=== PATIENT | male | born 1985 | race Caucasian/White ===

== ENCOUNTER 2019-06-08 00:24 | Emergency (ER) | payer OTHER ==
--- NOTE | 2019-06-08 00:42 | PDOC ---
History of Present Illness - General Stated Complaint: BACK PAIN & ARM PAIN Time Seen by Provider: 06/08/19 00:39 - History of Present Illness Initial Comments: 06/08/19 00:47 The patient is a 33 year old male with no significant PMH who presents for evaluation of lower back pain and left elbow pain. 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 He denies any head trauma or other injuries and otherwise denies chest pain, SOB, nausea, vomiting, abdominal pain, numbness, tingling, or weakness. Past History - Past Medical History Allergies/Adverse Reactions: Allergies Allergy/AdvReac Type Severity Reaction Status Date / Time No Known Allergies Allergy Verified 06/08/19 00:49 Home Medications: Ambulatory Orders NK [No Known Home Medication] 06/08/19 - Psycho Social/Smoking Cessation Hx Smoking History: Current every day smoker Number of Cigarettes Smoked Daily: 5 Hx Alcohol Use: No Drug/Substance Use Hx: No Review of Systems - Review of Systems Comments:: 06/08/19 00:49 Constitutional: No fevers, chills, fatigue, malaise HEENT: No Rhinorrhea, nasal congestion, visual changes Cardiovascular: No chest pain, syncope, palpitations, lightheadedness Respiratory: No Cough, SOB, Hemoptysis, Gastrointestinal: No Abdominal pain, Nausea, Vomiting, Constipation, Diarrhea, Melena Genitourinary: No Dysuria, Frequency, Urgency, Hesitancy, Hematuria, Flank pain Musculoskeletal: Lower back pain. Left elbow pain. No Myalgia, arthralgia Skin: No rashes, itching, bruising, pallor Neurologic: No Headache, Dizziness, Numbness, Weakness, or Tingling Psychiatric: No Hallucinations. No SI or HI *Physical Exam - Physical Exam 06/08/19 00:49 General Appearance: Nourished. No Apparent Distress HEENT: No Pharyngeal Erythema, Tonsillar Exudate, Tonsillar Erythema Neck: No Cervical Lymphadenopathy Respiratory/Chest: Lungs Clear, Normal Breath Sounds. No Crackles, Rales, Rhonchi, Wheezing Cardiovascular: Regular Rhythm, Regular Rate. No Murmur, Gallops, Rubs Gastrointestinal/Abdominal: Normal Bowel Sounds, Soft. No Guarding, Rebound, Tenderness Musculoskeletal: Bilateral paraspinal discomfort with palpation in the lumbar region on exam. Normal patella reflexes distally. Normal ROM of the left elbow. No CVA Tenderness Extremity: Normal Capillary Refill Integumentary: Normal Color, Dry, Warm Neurologic: Fully Oriented, Alert, Normal Mood/Affect, Normal Response, Motor Strength 5/5. Medical Decision Making - Medical Decision Making 06/08/19 00:50 The patient is a 33 year old male with no significant PMH who presents for evaluation of lower back pain and left elbow pain. Given the patient's history and physical exam, we will obtain plain films to evaluate further. We will treat with ibuprofen and continue to monitor and reassess while here in the ED. 06/08/19 01:39 Plain films did not demonstrate any acute process as preliminarily read by ED physician pending official radiology review. We are comfortable discharging the patient home in stable condition. Patient and family made aware of impression and plan, return precautions discussed including but not limited to worsening pain or symptoms, fevers, or signs of infection, chest pain, respiratory distress, inability to tolerate oral intake, dehydration, syncope, or neurologic changes. The patient is to follow up with PMD as recommended within 1 week, follow up information provided and the patient will call for an appointment. The patient is to take medications as instructed for duration of time and continue with supportive care, avoid triggers and precipitants. Patient is safe for outpatient follow-up. Discharge - Discharge Information Problems reviewed: Yes Clinical Impression/Diagnosis: Back pain Qualifiers: Back pain location: low back pain Chronicity: acute Back pain laterality: unspecified Sciatica presence: unspecified whether sciatica present Qualified Code(s): M54.5 - Low back pain Condition: Stable Disposition: HOME - Follow up/Referral - Patient Discharge Instructions Patient Printed Discharge Instructions: DI for Low Back Pain Additional Instructions: 1) Please follow-up with your primary care doctor in the next 2-3 days. Please call tomorrow to schedule a follow up appointment. If you cannot follow up with your doctor within 1 week please return to the Emergency Department for any urgent issues. 2) Your imaging results were normal here in the ER. 3) If you have any worsening of symptoms or any other concerns, please return to the ER immediately. Return if worsening symptoms including fevers, headache, vomiting, visual or hearing disturbances, abdominal pain, chest pain, shortness of breath, syncope, dehydration, inability to take things by mouth/vomiting, altered mental status, or worsening concerning symptoms. 4) You may take tylenol and motrin at home as needed to help manage your pain. - Post Discharge Activity
[2019-06-08] MEDS ORDERED: IBUPROFEN 600 MG TABLET (FP) PO ONE ×2 (00:45→00:53)
[2019-06-08 00:53] VITALS: BP 117/70; PULSE 85; TEMP 98; BMI 32.3
--- NOTE | 2019-06-08 00:54 | PDOC ---
Attending Attestation - Resident Resident Name: Antony Jones - ED Attending Attestation I have performed the following: I have examined & evaluated the patient, The case was reviewed & discussed with the resident, I agree w/resident's findings & plan, Exceptions are as noted - HPI HPI: 06/08/19 00:51 33M with no PMH presenting to ED with lower back and L elbow pain. Pt is [employer] and states that he fell earlier this evening. Denies headstrike/LOC. Pt denies lower extremity weakness/numbness. Denies incontinence. Denies saddle anesthesia. - Physicial Exam PE: 06/08/19 00:53 "GENERAL: Awake, alert, and fully oriented, in no acute distress. HEAD: No signs of trauma EYES: PERRLA, EOMI, sclera anicteric, conjunctiva clear ENT: Auricles normal inspection, hearing grossly normal, nares patent, oropharynx clear without exudates. Moist mucosa NECK: Nontender, no stepoffs, Normal ROM, supple, no lymphadenopathy, JVD, or masses LUNGS: Breath sounds equal, clear to auscultation bilaterally. No wheezes, and no crackles HEART: Regular rate and rhythm, normal S1 and S2, no murmurs, rubs or gallops ABDOMEN: Soft, nontender, normoactive bowel sounds. No guarding, no rebound. No masses EXTREMITIES: + L elbow with mild TTP, no deformity, Normal range of motion, no edema. No clubbing or cyanosis. No cords, erythema BACK: + lumbar paraspinal TTP, no stepoffs, no midline TTP NEUROLOGICAL: Cranial nerves II through XII intact. 5/5 strength and sensation in all extremities, Normal speech, normal gait, normal cerebellar function SKIN: Warm, Dry, normal turgor, no rashes or lesions noted. - Medical Decision Making 06/08/19 00:54 33 M with lower back and L elbow pain after fall. - XR lumbar spine, L elbow - Tylenol 06/08/19 01:43 XRs negative on my read Pt is well appearing, with normal vitals. Clinically stable for DC at this time. I discussed the physical exam findings, ancillary test results and final diagnoses with the patient. I answered all of the patient's questions. The patient was satisfied with the care received and felt comfortable with the discharge plan and treatment plan. The patient agrees to follow up with the primary care physician within 24-72 hours.
== END 2019-06-08 01:49 | disposition home or self-care (01) ==
LOC: JER 00:24
DX: M54.5 Low back pain (principal); F17.210 Nicotine dependence, cigarettes, uncomplicated; W18.39XA Other fall on same level, initial encounter; Y93.89 Activity, other specified; Y92.89 Other specified places as the place of occurrence of the external cause; Y99.0 Civilian activity done for income or pay
CPT/HCPCS: 72100-TC-FY; 73070-TC-LT-FY; 99283-25

== ENCOUNTER 2020-08-26 09:11 | Emergency (ER) | payer OTHER ==
[2020-08-26 09:24] VITALS: BP 132/82; PULSE 58; TEMP 97.8; BMI 32.1
[2020-08-26] MEDS ORDERED: KETOROLAC TROMETHAMINE 30 MG/1 ML VIAL IM ONE (09:49)
[2020-08-26] MEDS ORDERED: KETOROLAC TROMETHAMINE 30 MG/1 ML VIAL ONE (09:50)
== END 2020-08-26 10:30 | disposition home or self-care (01) ==
LOC: FER 09:11
PROC: 3E0233Z Introduction of Anti-inflammatory into Muscle, Percutaneous Approach (ICD-10-PCS; principal; 2020-08-26)
DX: M25.511 Pain in right shoulder (principal)
CPT/HCPCS: 73030-TC-RT-FY; 99284-25

== ENCOUNTER 2022-08-25 13:15 | Emergency (ER) | payer OTHER ==
[2022-08-25] MEDS ORDERED: IBUPROFEN 600 MG TABLET (FP) PO ONE ×2 (13:19→13:27)
[2022-08-25] MEDS ORDERED: LIDOCAINE 5% TOPICAL PATCH TP ONE (13:19)
[2022-08-25 13:21] VITALS: BP 144/69; PULSE 70; RESP 18; TEMP 98.4; BMI 32.1
[2022-08-25] MEDS ORDERED: LIDOCAINE 5% TOPICAL PATCH ONE (13:27)
[2022-08-25] MEDS ORDERED: LIDOCAINE PATCH REMOVAL MC SCH (22:00)
== END 2022-08-25 13:37 | disposition home or self-care (01) ==
LOC: FER 13:15
DX: M54.50 Low back pain, unspecified (principal)
CPT/HCPCS: 99283-25

== ENCOUNTER 2023-05-01 16:28 | Emergency (ER) | payer OTHER ==
[2023-05-01 16:45] VITALS: BP 137/80; PULSE 72; RESP 16; TEMP 99.2; BMI 34.7
[2023-05-01] MEDS ORDERED: NAPROXEN 500 MG TABLET PO ONE (17:09)
[2023-05-01] MEDS ORDERED: NAPROXEN 500 MG TABLET ONE (17:32)
== END 2023-05-01 17:48 | disposition home or self-care (01) ==
LOC: FER 16:28
DX: M54.50 Low back pain, unspecified (principal)
CPT/HCPCS: 99283-25